=== PATIENT | male | born 1940 | race Caucasian/White ===

== ENCOUNTER 2023-09-12 10:47 | Outpatient (CLI) | payer OTHER, SELFPAY ==
--- NOTE | ~2023-09-12 | XR_ITS ---
Left Shoulder Technique: AP and scapular Y views were obtained. Clinical History: Pain Findings: No fracture or dislocation is seen. Osseous alignment is anatomic. The glenohumeral and acr omioclavicular joint spaces are preserved. Soft tissues are unremarkable. Impression: Unremarkable left shoulder radiographs. Reviewed, dictated and finalized at [facility]. [employer] Impression: Unremarkable left shoulder radiographs.
== END 2023-09-12 10:48 | disposition home or self-care (01) ==
PROVIDERS: PCP Family Medicine; Visit Provider Physician Assistant Medical
DX: S49.92XA Unspecified injury of left shoulder and upper arm, initial encounter (principal); M25.512 Pain in left shoulder; X58.XXXA Exposure to other specified factors, initial encounter
CPT/HCPCS: 73030